=== PATIENT | female | born 1950 | race Caucasian/White ===

== ENCOUNTER 2017-08-19 11:18 | Emergency (ER) | payer OTHER ==
[~2017-08-19] VITALS: Ht 162.6 cm; Wt 63.5 kg
[2017-08-19 11:31] VITALS: BP 133/72
== END 2017-08-19 14:01 | disposition home or self-care (01) ==
LOC: ER 11:24
DX: S52.515A Nondisplaced fracture of left radial styloid process, initial encounter for closed fracture (principal); J45.909 Unspecified asthma, uncomplicated; W01.0XXA Fall on same level from slipping, tripping and stumbling without subsequent striking against object, initial encounter; Y93.89 Activity, other specified; Y99.8 Other external cause status; Y92.89 Other specified places as the place of occurrence of the external cause
CPT/HCPCS: 73110; 73130

== ENCOUNTER 2022-04-30 08:39 | Emergency (ER) | payer OTHER ==
[~2022-04-30] VITALS: Ht 170.2 cm; Wt 70.2 kg
[2022-04-30 09:32] VITALS: BP 148/56
[2022-04-30] MEDS ORDERED: KETOROLAC TROMETH 60MG/2ML VIAL IM ONE (09:45)
[2022-04-30] MEDS ORDERED: CYCL-839 PO (11:14)
[2022-04-30] MEDS ORDERED: IBUP800T26 PO (11:14)
[2022-04-30] MEDS ORDERED: HYDR-4902 PO (11:14)
== END 2022-04-30 11:24 | disposition home or self-care (01) ==
LOC: ER 08:39
DX: M62.838 Other muscle spasm (principal); J45.909 Unspecified asthma, uncomplicated
CPT/HCPCS: 72040; 96372; 99283; J1885

== ENCOUNTER 2023-03-02 11:16 | Emergency (ER) | payer OTHER ==
[~2023-03-02] VITALS: Ht 162.6 cm; Wt 69.6 kg
[~2023-03-02 11:16] MED LIST: CYCL-839 PO; HYDR-4902 PO; IBUP-1455 PO
[2023-03-02] MEDS ORDERED: ALBUTEROL SULF 2.5 MG/0.5ML(0.5%) NEB SOLN NEB ONE ×2 (11:30→11:45)
[2023-03-02] MEDS ORDERED: IPRATROPIUM BROM 0.5 MG/2.5ML INH SOL NEB ONE (11:30)
[2023-03-02] MEDS ORDERED: IPRATROPIUM BROM 0.5 MG/2.5ML INH SOL HHN ONE ×2 (11:45→16:15)
[2023-03-02] MEDS ORDERED: ALBUTEROL SULF 2.5 MG/0.5ML(0.5%) NEB SOLN HHN ONE ×2 (11:45→16:15)
[2023-03-02] MEDS ORDERED: DexAMETHasone SOD PHOS 10MG/1ML VIAL INJ IV ONE (11:45)
[2023-03-02 12:34] LABS: Basophils # (auto) 0 10 ^3/uL (0-0.2); Basophils % (auto) 0.1 % (0.0-2.0); Eosinophils # (auto) 0 10 ^3/uL (0-0.8); Hematocrit 48.1 % (36.0-46.0); Hemoglobin 16.1 g/dL (12.2-16.2); Lymphocytes # (auto) 0.9 10 ^3/uL (0.4-5.4); Lymphocytes % (auto) 8.6 % (10.0-50.0); Mean Corpuscular Hemoglobin 30.9 pg (28.0-32.0); Mean Corpuscular Hgb Conc. 33.6 g/dL (32.0-36.0); Mean Corpuscular Volume 92.1 fL (80.0-100.0); Monocytes # (auto) 0.7 10 ^3/uL (0-1.3); Monocytes % (auto) 6.1 % (0.0-12.0); Neutrophils # (auto) 9.2 10 ^3/uL (1.6-8.6); Neutrophils % (auto) 85.2 % (37.0-80.0); Red Blood Cells 5.22 10^6/uL (4.0-5.20); White Blood Cell 10.8 10^3/uL (4.4-10.8)
[2023-03-02 12:45] LABS: Alanine Aminotransferase 23 U/L (7-40); Albumin 4.9 g/dL (3.2-4.8); Alkaline Phosphatase 75 U/L (46-116); Anion Gap 9 (5-15); Aspartate Aminotransferase 24 U/L (13-40); BUN/Creatinine Ratio 14.8 (10.0-20.0); Bilirubin, Total 0.3 mg/dL (0.2-1.0); Blood Urea Nitrogen 9 mg/dL (9-23); Calcium 9.8 mg/dL (8.5-10.1); Carbon Dioxide 27 mmol/L (20-30); Chloride 101 mmol/L (98-107); Glucose 118 mg/dL (74-106); Potassium 4.1 mmol/L (3.5-5.1); Sodium 137 mmol/L (136-145); Total Protein 7.5 g/dL (5.7-8.2)
[2023-03-02 14:28] LABS: Urine Epithelial Cast None Seen /hpf (<5)
[2023-03-02 14:39] LABS: Urine Bacteria MOD /hpf (None Seen); Urine Blood 1+ /uL (Negative); Urine Clarity Clear (Clear); Urine Color Colorless (Yellow); Urine Protein, UAD Negative (Negative); Urine Specific Gravity 1.007 (1.001-1.035); Urine Urobilinogen Normal (Negative); Urine WBC 2 /hpf (0 - 5); Urine pH 5.5 (5.0-8.0)
[2023-03-02] MEDS ORDERED: MAGNESIUM SULFATE 1GM/100ML 100 ML IV SCH (16:15)
[2023-03-02 16:28] LABS: Base Excess -2.7 mmol/L (-2.0-2.0)
[2023-03-02 17:41] VITALS: BP 136/74; PULSE 109; RESP 18; TEMP 97.7; O2SAT 92
[2023-03-02] MEDS ORDERED: PRED20TA2 PO (18:25)
[2023-03-02] MEDS ORDERED: ALBU108A5 IN (18:25)
== END 2023-03-02 20:04 | disposition left against medical advice (07) ==
LOC: ER 11:16
DX: J20.9 Acute bronchitis, unspecified (principal); J44.9 Chronic obstructive pulmonary disease, unspecified; Z79.899 Other long term (current) drug therapy
CPT/HCPCS: 36415; 36600; 71045; 71250; 80053; 81001; 82805; 83605; 83735; 84484; 85025; 87040; 94640; 94644; 96365; 96375; 99285; J1100; J3475; J7644